=== PATIENT | female | born 1975 | race Caucasian/White ===

== ENCOUNTER 2018-09-13 11:13 | Emergency (ER) | payer MEDICAID, OTHER ==
[~2018-09-13] VITALS: Wt 78.0 kg
[2018-09-13] MEDS ORDERED: ACET500C5 PO (11:43)
[2018-09-13] MEDS ORDERED: DIC250 PO (11:43)
--- NOTE | 2018-09-13 12:12 | ERD ---
ER Documentation Chief Complaint Chief Complaint LEFT BREAST PAIN, , PAIN X 2 WEEKS HPI Patient is a 43-year-old female who presents the ER for concerns of left breast pain and nipple pain times 2 weeks. Patient states that she is noticed some white dots on her nipple and it they are painful. Patient is currently breast- feeding. Patient denies any fevers or chills. Patient denies any redness to her breasts. Patient states that she does feel painful lumps within her breasts. Patient denies any chest pain, shortness of breath, left upper extremity pain, nausea, vomiting or LOC. ROS All systems reviewed and are negative except as per history of present illness. Medications Home Meds Active Scripts Acetaminophen* (Tylophen*) 500 Mg Capsule, 1 CAP PO Q6H PRN for PAIN AND OR ELEVATED TEMP, #20 CAP Prov:BOB AGUERO PA-C 09/13/18 Dicloxacillin Sodium* (Dynapen*) 250 Mg Cap, 500 MG PO Q6 for 10 Days, CAP Prov:BOB AGUERO PA-C 09/13/18 PMhx/Soc Medical and Surgical Hx: pt denies Medical Hx, pt denies Surgical Hx Hx Alcohol Use: No Hx Substance Use: No Hx Tobacco Use: No FmHx Family History: No diabetes Physical Exam Vitals Vital Signs Date Temp Pulse Resp B/P (MAP) Pulse Ox O2 O2 Flow FiO2 Time Delivery Rate 09/13/18 98.1 83 18 114/75 99 11:15 (88) Physical Exam GENERAL: Well-developed, well-nourished male. Appears in no acute distress. HEAD: Normocephalic, atraumatic. EYES: Pupils are equally reactive bilaterally. EOMs grossly intact. No conjunctival erythema. ENT: Moist mucous membranes. No uvula deviation. No kissing tonsils. NECK: Supple. No meningismus. Normal range of motion of the neck. L BREAST: Nipple appears erythematous and swollen. No redness or swelling of breast tissue however palpable painful lumps noted. LUNG: Clear to auscultation bilaterally. No rhonchi, wheezing, rales or coarse breath sounds. HEART: Regular rate and rhythm. No murmurs, rubs or gallops. EXTREMITIES: Equal pulses bilaterally. No peripheral clubbing, cyanosis or edema. No unilateral leg swelling. NEUROLOGIC: Alert and oriented. Moving all four extremities without any difficulty. Normal speech. Steady gait. SKIN: Normal color. Warm and dry. No rashes or lesions. Procedures/MDM MEDICAL DECISION MAKING: Patient is a 43-year-old female, presents with left-sided breast pain and nipple pain times 2 weeks. Patient is currently breast-feeding her baby.. Vital signs were reviewed. Patient is afebrile. Patient was not hypoxic. Patient was hemodynamically stable. Physical exam findings are concerning for mastitis. Patient will be treated with course of antibiotic. Patient was advised to continue to breast-feed as this will help with her symptoms. Low suspicion for ACS, pericarditis, arrhythmia, pneumothorax, PE, deep space infection. Patient was nontoxic, [id number] prior to discharge. PRESCRIPTION: Tylenol, Dicloxacillin DISCHARGE: At this time, patient is stable for discharge and outpatient management. I have instructed the patient to follow-up with his/her primary care physician in 1-2 days. I have discussed with the patient the possibility of needing to see a specialist for further workup and imaging studies if symptoms persist. I have instructed the patient to promptly return to the ER for any new or worsening symptoms including increased pain, fever, nausea, vomiting, weakness or LOC. The patient and/or family expressed understanding of and agreement with this plan. All questions were answered. Home care instructions were provided. Disclaimer: Inadvertent spelling and grammatical errors are likely due to EHR/dictation software use and do not reflect on the overall quality of patient care. Also, please note that the electronic time recorded on this note does not necessarily reflect the actual time of the patient encounter. Departure Diagnosis: Primary Impression: Mastitis Additional Impression: Mother currently breast-feeding Condition: Fair Patient Instructions: Mastitis Referrals: COMMUNITY CLINICS YOU HAVE RECEIVED A MEDICAL SCREENING EXAM AND THE RESULTS INDICATE THAT YOU DO NOT HAVE A CONDITION THAT REQUIRES URGENT TREATMENT IN THE EMERGENCY DEPARTMENT. FURTHER EVALUATION AND TREATMENT OF YOUR CONDITION CAN WAIT UNTIL YOU ARE SEEN IN YOUR DOCTORS OFFICE WITHIN THE NEXT 1-2 DAYS. IT IS YOUR RESPONSIBILITY TO MAKE AN APPOINTMENT FOR FOLOW-UP CARE. IF YOU HAVE A PRIMARY DOCTOR --you should call your primary doctor and schedule an appointment IF YOU DO NOT HAVE A PRIMARY DOCTOR YOU CAN CALL OUR PHYSICIAN REFERRAL HOTLINE AT IF YOU CAN NOT AFFORD TO SEE A PHYSICIAN YOU CAN CHOSE FROM THE FOLLOWING [facility] CL[facility] [address] [facility] [address] [facility]. [facility] [address] [facility] [address] [facility] [address] [facility]. [facility] [address] [facility]. [facility] YOU HAVE RECEIVED A MEDICAL SCREENING EXAM AND THE RESULTS INDICATE THAT YOU DO NOT HAVE A CONDITION THAT REQUIRES URGENT TREATMENT IN THE EMERGENCY DEPARTMENT. FURTHER EVALUATION AND TREATMENT OF YOUR CONDITION CAN WAIT UNTIL YOU ARE SEEN IN YOUR DOCTORS OFFICE WITHIN THE NEXT 1-2 DAYS. IT IS YOUR RESPONSIBILITY TO MAKE AN APPOINTMENT FOR FOLOW-UP CARE. IF YOU HAVE A PRIMARY DOCTOR --you should call your primary doctor and schedule and appointment IF YOU DO NOT HAVE A PRIMARY DOCTOR YOU CAN CALL OUR PHYSICIAN REFERRAL HOTLINE AT . IF YOU CAN NOT AFFORD TO SEE A PHYSICIAN YOU CAN CHOSE FROM THE FOLLOWING [facility] INSTITUTIONS: [facility] [address] [place] [address] [facility] [address] [place] [address] [facility] [address] [place] [address] B[place] [address] [facility] [address] [place], [place] [id number] OFFICE FAX GYPSY OSPINA [address] [place], [place] [id number] BUTCHER [place] [address] [place], [place] [id number] RUY AMATO [address] [address] [address] [address] [place] [address] [facility] [address] [place] [id number] [facility] [id number] [address] [place] [address], [facility] [id number] MORALES, [place]IND[place] [address] [facility] [address], [facility] [id number] [place] [address] [place] [address] Additional Instructions: Call your primary care doctor TOMORROW for an appointment during the next 1-2 days.See the doctor sooner or return here if your condition worsens before your appointment time. BOB AGUERO PA-C Sep 13, 2018 12:12
== END 2018-09-13 13:03 | disposition home or self-care (01) ==
LOC: FTE 11:13
DX: N61.0 Mastitis without abscess (principal)
CPT/HCPCS: 99283

== ENCOUNTER 2019-01-01 04:55 | Emergency (ER) | payer MEDICAID ==
[~2019-01-01] VITALS: Ht 170.2 cm; Wt 67.9 kg
[~2019-01-01 04:55] MED LIST: ACET500C5 PO; DIC250 PO
[2019-01-01 05:05] VITALS: Ht 170.2 cm; Wt 67.9 kg
[2019-01-01] MEDS ORDERED: DIC250 PO (05:37)
--- NOTE | 2019-01-01 05:52 | ERD ---
ER Documentation Chief Complaint Chief Complaint L brest pain while brest feeding 8 month old HPI 43-year-old female presents for evaluation of left-sided breast pain x3 months. Patient notes a history of mastitis 4 months previously states symptoms are similar in presentation to previous episode. Denies fevers, chills, sweats, shortness of breath. She is currently still lactating without complication. She states to have an INSTRUMENT LENS INSPECTOR for which she is scheduled to follow-up within the next few weeks. Not taken any medications to alleviate her symptoms at this time. ROS All systems reviewed and are negative except as per history of present illness. Medications Home Meds Active Scripts Dicloxacillin Sodium* (Dynapen*) 250 Mg Cap, 500 MG PO QID for MASTITIS for 10 D ays, #80 CAP Prov:USMAN SPRING PA-C 01/01/19 Acetaminophen* (Tylophen*) 500 Mg Capsule, 1 CAP PO Q6H PRN for PAIN AND OR ELEVATED TEMP, #20 CAP Prov:BOB AGUERO PA-C 09/13/18 Dicloxacillin Sodium* (Dynapen*) 250 Mg Cap, 500 MG PO Q6 for 10 Days, CAP Prov:BOB AGUERO PA-C 09/13/18 Allergies Allergies: Coded Allergies: No Known Allergy (Unverified , 09/13/18) PMhx/Soc Medical and Surgical Hx: pt denies Medical Hx, pt denies Surgical Hx History of Surgery: No Anesthesia Reaction: No Hx Neurological Disorder: No Hx Respiratory Disorders: No Hx Cardiac Disorders: No Hx Psychiatric Problems: No Hx Miscellaneous Medical Probl: No Hx Alcohol Use: No Hx Substance Use: No Hx Tobacco Use: No Smoking Status: Never smoker Physical Exam Vitals Vital Signs Date Temp Pulse Resp B/P (MAP) Pulse Ox O2 O2 Flow FiO2 Time Delivery Rate 01/01/19 98.3 65 16 109/74 100 05:05 (86) Physical Exam Const: No acute distress Head: Atraumatic Eyes: Normal Conjunctiva ENT: Normal External Ears, Nose and Mouth. Neck: Full range of motion. No meningismus. Breast: No erythema or warmth of the left breast. Palpable area of induration at the 2 o'clock position of the left breast with tenderness. No lesions or masses. Right breast unremarkable. Resp: Clear to auscultation bilaterally Cardio: Regular rate and rhythm, no murmurs Skin: No petechiae or rashes Back: No midline or flank tenderness Neur: Awake and alert Psych: Normal Mood and Affect Procedures/MDM MDM: 43-year-old female presents with left-sided breast pain x3 weeks. Physical exam findings consistent with mastitis. Vital signs stable afebrile. Patient nontoxic in appearance. Patient stable for outpatient management with prescription for dicloxacillin and advised to follow-up with INSTRUMENT LENS INSPECTOR for breast exam and further management. Patient counseled regarding warm compresses to the area to help relieve duct. She expressed verbal understanding and agreement to treatment plan. All questions addressed and answered. Departure Diagnosis: Primary Impression: Breast pain Additional Impression: Mastitis Condition: Stable Patient Instructions: Breast Self-Exam (BSE), Mastitis Referrals: INSTRUMENT LENS INSPECTOR [place] [address] [facility] [address] [place] [address]ABUSLEME GYPSY [address] [place] [address] [address] [place] [address] [place] [address] [address] [facility] [address] [facility], [id number] [address] [facility] [address] [place] [address] [facility] [address] [place] [address] [phone] [address] [facility] [address] - [place] [address], [facility] [address] [address] MORALES, MANINDER [address] [facility]. [address], [facility] [address] [address] [facility] [address] [place] [address] Additional Instructions: Please follow-up with your ob-metal hanger within the next 1-2 days for further management. Return to the ED if symptoms persist or worsen. USMAN SPRING PA-C Jan 01, 2019 05:52
== END 2019-01-01 05:47 | disposition home or self-care (01) ==
LOC: FTE 04:55
DX: N64.4 Mastodynia (principal); N61.0 Mastitis without abscess